=== PATIENT | female | born 1975 | race Hispanic/Latino ===

== ENCOUNTER 2016-12-13 15:46 | Emergency (ER) | payer SELFPAY ==
[2016-12-13 15:56] VITALS: BP 142/80; PULSE 71; RESP 16; TEMP 98; O2SAT 99
--- NOTE | 2016-12-13 16:45 | ED PDOC ---
Lower Extremity Pain/Injury Time Seen by Provider: 12/13/16 15:57 Chief Complaint (Nursing): Lower Extremity Problem/Injury Chief Complaint (Provider): Right heel pain History Per: Patient History/Exam Limitations: no limitations Onset/Duration Of Symptoms: Days (x4 months), Worse Since (x1 day) Current Symptoms Are (Timing): Still Present Additional Complaint(s): Elle Fabian is a 41 year old female who presents to the emergency department complaining of right heel pain for 4 months. Patient states she finds it difficult to walk after waking in the morning but is able to handle the pain better throughout the day. She has been taking Advil with no relief of symptoms. She denies any trauma but she states she is on her feet a lot at work. PMD: None Past Medical History Reviewed: Historical Data, Nursing Documentation, Vital Signs Vital Signs: Last Vital Signs Temp 98.0 F 12/13/16 15:54 Pulse 71 12/13/16 15:54 Resp 16 12/13/16 15:54 BP 142/80 12/13/16 15:54 Pulse Ox 99 12/13/16 15:54 - Medical History PMH: No Chronic Diseases - Surgical History Surgical History: - Family History Family History: States: No Known Family Hx - Living Arrangements Living Arrangements: With Family - Social History Current smoker - smoking cessation education provided: No Alcohol: Social Drugs: Denies - Home Medications Home Medications: Ambulatory Orders Medication Instructions Recorded Naproxen [Naprosyn] 500 mg PO BID #20 tab 12/13/16 traMADol [Ultram] 50 mg PO TID PRN #15 tab 12/13/16 - Allergies Allergies/Adverse Reactions: Allergies Allergy/AdvReac Type Severity Reaction Status Date / Time No Known Allergies Allergy Verified 12/13/14 08:41 Wells Criteria for PE - Wells Criteria for Pulmonary Embolism Clinical Signs and Symptoms of DVT: No P.E is #1 Diagnosis, or Equally Likely: No Heart Rate >100: No Immobilization at least 3 days;Surgery previous 4 weeks: No Previous, objectively diagnosed PE or DVT: No Hemoptysis: No Malignancy w/treatment within 6 months, or palliative: No Total Score: 0 Review of Systems ROS Statement: Except As Marked, All Systems Reviewed And Found Negative Constitutional: Negative for: Fever Musculoskeletal: Positive for: Foot Pain (right heel pain for 4 months, denies trauma or injury) Physical Exam - Reviewed Nursing Documentation Reviewed: Yes Vital Signs Reviewed: Yes - Physical Exam Appears: Positive for: Well, Non-toxic, No Acute Distress Head Exam: Positive for: ATRAUMATIC, NORMAL INSPECTION, NORMOCEPHALIC Skin: Positive for: Normal Color Eye Exam: Positive for: Normal appearance Respiratory: Positive for: Normal Breath Sounds. Negative for: Respiratory Distress Extremity: Positive for: Tenderness (Point tenderness ro right heel, no swelling.). Negative for: Calf Tenderness (right calf no tenderness no swelling ), Swelling - Laboratory Results Urine POC: Negative - ECG O2 Sat by Pulse Oximetry: 99 (RA) Pulse Ox Interpretation: Normal - Other Rad Right foot x-ray X-Ray: Interpreted by Me, Viewed By Me X-Ray Interpretation: no fx, no dis, heel spur Medical Decision Making Medical Decision Making: Initial Impression: 41 y/o female with right heel pain Initial Plan: --Urine --Ultram 50 mg PO --Foot right 3 views [RAD] See procedure note. Patient was given rx naprosyn and tramadol. She was referred to podiatry clinic for follow up. Scribe Attestation: Documented by Jose Rosen, acting as a scribe for Dori GARCIA. Provider Scribe Attestation: All medical record entries made by the Scribe were at my direction and personally dictated by me. I have reviewed the chart and agree that the record accurately reflects my personal performance of the history, physical exam, medical decision making, and the department course for this patient. I have also personally directed, reviewed, and agree with the discharge instructions and disposition. Procedures - Splinting Location: right foot Pre-Made Type: shani wrap and ortho shoe Pre-Proc Neuro Vasc Exam: normal Post-Proc Neuro Vasc Exam: normal Disposition - Clinical Impression Clinical Impression: Heel spur, Plantar fasciitis of right foot - Patient ED Disposition Is Patient to be Admitted: No Counseled Patient/Family Regarding: Studies Performed, Diagnosis, Need For Followup, Rx Given - Disposition Referrals: Podiatry Clinic [Outside] Disposition: Routine/Home Disposition Time: 17:23 Condition: STABLE Additional Instructions: Take rx meds as directed Ice and rest affected area. Follow up with podiatry clinic in 2-3 days. Prescriptions: Naproxen [Naprosyn] 500 mg PO BID #20 tab traMADol [Ultram] 50 mg PO TID PRN #15 tab PRN Reason: Pain, Moderate (4-7) Instructions: Plantar Fasciitis (ED), Heel Spur (ED) Forms: [facility] (Citizen Of [place]), [facility] ED School/Work Excuse Print Language: WELSH
--- NOTE | 2016-12-13 17:29 | RAD ---
PROCEDURE: Right foot dated 12/13/2016 Three standard views right foot performed. HISTORY: trauma COMPARISON: None. FINDINGS: BONES: No evidence of acute displaced fracture nor dislocation. The osseous structures appear intact. . No cortical destructive changes. Small plantar surface calcaneal enthesophyte present. JOINTS: Joint spaces relatively preserved. No significant osteoarthritis SOFT TISSUES: Soft tissues appear grossly unremarkable. No radiopaque foreign bodies. OTHER FINDINGS: None. IMPRESSION: No acute displaced fractures nor dislocations. If symptoms persist or occult fracture suspected clinically recommend repeat radiographs in 5-10 days as most fractures should become radiographically evident in this timeframe. Radiographs.
== END 2016-12-13 17:38 | disposition home or self-care (01) ==
LOC: H.ER 15:46
DX: M77.31 Calcaneal spur, right foot (principal); M72.2 Plantar fascial fibromatosis

== ENCOUNTER 2017-10-17 15:57 | Emergency (ER) | payer SELFPAY ==
[2017-10-17 16:34] VITALS: RESP 18
--- NOTE | 2017-10-17 20:23 | ED PDOC ---
HPI: Abdomen Time Seen by Provider: 10/17/17 17:40 Chief Complaint (Nursing): Abdominal Pain History Per: Patient Additional Complaint(s): 42 yo F c/o L pelvic pain associated with abnormal menses, intermittent vaginal d/c and weight gain. Denies fever, chills, N/V,D, urinary symptoms, being sexually active, h/o STDs, abdominal surgeries. Has no other complaints. Past Medical History Vital Signs: Last Vital Signs Temp 98 F 10/17/17 16:30 Pulse 90 10/17/17 16:30 Resp 18 10/17/17 16:30 BP 123/82 10/17/17 16:30 Pulse Ox 100 10/17/17 20:24 - Surgical History Surgical History: - Family History Family History: States: Unknown Family Hx - Immunization History Hx Tetanus Toxoid Vaccination: No Hx Influenza Vaccination: No Hx Pneumococcal Vaccination: No - Home Medications Home Medications: Ambulatory Orders Medication Instructions Recorded Naproxen [Naprosyn] 500 mg PO BID #20 tab 12/13/16 traMADol [Ultram] 50 mg PO TID PRN #15 tab 12/13/16 - Allergies Allergies/Adverse Reactions: Allergies Allergy/AdvReac Type Severity Reaction Status Date / Time No Known Allergies Allergy Verified 10/17/17 16:30 Review of Systems Constitutional: Negative for: Fever, Malaise Cardiovascular: Negative for: Chest Pain, Palpitations Respiratory: Negative for: Cough, Shortness of Breath Gastrointestinal: Positive for: Abdominal Pain. Negative for: Nausea, Vomiting Genitourinary Female: Positive for: Vaginal Discharge. Negative for: Dysuria, Frequency Skin: Negative for: Rash, Lesions Physical Exam - Physical Exam Appears: Positive for: Well, Non-toxic, No Acute Distress Head Exam: Positive for: ATRAUMATIC, NORMAL INSPECTION, NORMOCEPHALIC Skin: Positive for: Normal Color, Warm, DRY Eye Exam: Positive for: EOMI, Normal appearance, PERRL ENT: Positive for: Normal ENT Inspection Neck: Positive for: Normal, Painless ROM Cardiovascular/Chest: Positive for: Regular Rate, Rhythm Respiratory: Positive for: CNT, Normal Breath Sounds Gastrointestinal/Abdominal: Positive for: Normal Exam, Soft. 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 Negative for: No Cerv. Motion Tender, No Masses, Active Bleeding, Discharge, Lesions Back: Positive for: Normal Inspection Extremity: Positive for: Normal ROM Neurologic/Psych: Positive for: Alert, Oriented - ECG O2 Sat by Pulse Oximetry: 100 Medical Decision Making Medical Decision Making: Plan : - Udip - US pelvic Uhcg (-) Udip (-) Pelvic US results pending. Case endorsed to RADHA Rodriguez at 1999 pending US results, and disposition. Disposition - Clinical Impression Clinical Impression: Pelvic pain - Patient ED Disposition Is Patient to be Admitted: Transfer of Care (Case endorsed to RADHA Rodriguez at 1999 pending US results and disposition) Counseled Patient/Family Regarding: Studies Performed, Diagnosis - Disposition Disposition Time: 20:15 Condition: STABLE Forms: [facility] (Kiswahili)
--- NOTE | 2017-10-17 23:05 | ED PDOC ---
- ECG O2 Sat by Pulse Oximetry: 100 - Progress ED Course And Treament: Case endorsed to medical underwriter from Amadou BINGHAM pending u/s EXAM: US Pelvis Complete, Transabdominal US Duplex Arterial/Venous of the Pelvis, Complete CLINICAL HISTORY: 42 years old, female; Pain; Pelvic pain; Additional info: L pelvic pain TECHNIQUE: Real-time transabdominal pelvic ultrasound (complete) with image documentation. Real-time duplex ultrasound scan of the arterial and venous flow of the pelvis with color Doppler flow and spectral waveform analysis. COMPARISON: No relevant prior studies available. FINDINGS: Uterus/cervix: No myometrial mass. Endometrium: 0.7 cm in thickness. Right ovary: No mass. 1.0 x 1.0 x 1.2 cm follicle. Normal flow. Left ovary: No mass. 1.2 x 1.3 x 1.9 cm follicle. Normal flow. Free fluid: No significant free fluid. IMPRESSION: 1. No acute findings. 2. Non-acute findings are described above. On re-eval, patient states she is feeling better, resting comfortably Patient educated on findings, discharged with instructions to follow up at [facility] ADvised Tylenol/Ibuprofen PRN pain Return precautions given Disposition - Clinical Impression Clinical Impression: Pelvic pain - POA Present On Arrival: None - Disposition Referrals: [facility] [Outside] Disposition: Routine/Home Disposition Time: 23:06 Condition: STABLE Instructions: Chronic Pelvic Pain in Women
[2017-10-18 05:38] VITALS: BP 122/76; PULSE 73; TEMP 98.2; O2SAT 99
--- NOTE | 2017-10-18 14:15 | US ---
Date of service: 10/17/2017 HISTORY: Left pelvic pain. LMP 10/07/2017. Irregular cycles. COMPARISON: None. TECHNIQUE: Transabdominal only. Real-time technique with 2D, duplex and color Doppler FINDINGS: UTERUS: Measures 4.2 x 5.1 x 7.7 cm. Normal in size and appearance. No fibroid or other mass lesion seen. ENDOMETRIUM: Measures 7.4 mm in diameter. No ultrasound findings to suggest gestational sac, fluid, debris, mass or polyp or other pathologic process within the endometrium. CERVIX: No cervical abnormality identified. RIGHT OVARY: Measures 1.6 x 2.2 x 2.4 cm. No solid mass. Normal flow. LEFT OVARY: Measures 1.6 x 2.1 x 2.4 cm. No solid mass. Normal flow. FREE FLUID: No significant free fluid noted. OTHER FINDINGS: None. IMPRESSION: No acute findings related to/accounting for the clinical presentation. Concordant results (preliminary interpretation) provided by [facility]. Procedure Completed: 19:12 Preliminary ([facility]) Report: Dictated and Authenticated: 22:38 Final Interpretation: 14:08
== END 2017-10-17 23:30 | disposition home or self-care (01) ==
LOC: H.ER 15:57
DX: R10.2 Pelvic and perineal pain (principal)

== ENCOUNTER 2018-01-06 15:29 | Emergency (ER) | payer OTHER, SELFPAY ==
[2018-01-06 15:44] VITALS: TEMP 98.6; O2SAT 100
--- NOTE | 2018-01-06 16:18 | ED PDOC ---
HPI: General Adult Time Seen by Provider: 01/06/18 15:55 Chief Complaint (Nursing): Headache Chief Complaint (Provider): Ear and neck pain History Per: Patient History/Exam Limitations: no limitations Onset/Duration Of Symptoms: Days (x 3) Current Symptoms Are (Timing): Still Present Additional Complaint(s): 42 year old female presents to the ED with left ear pain and left upper neck pain for the last 3 days. Patient reports neck pain is worse with movement. Today, she developed left posterior shoulder pain and "sleepiness" in left arm. Patient took 3 Advil and tetracycline [place] got from [place] with minimal relief. Also, yesterday, both of her hands looked blue and resolved after a couple hours on its own. Denies weakness, fever, headache, vision changes and difficulty talking. PMD: Dr. Chuck Kinney NIHSS Stroke Scale - Date/Time Evaluation Performed Date Performed: 01/06/18 - How Severe is the Stroke Level of Consciousness: 0=Alert LOC to Questions: 0=Both comments correct LOC to commands: 0=Obeys both correctly Best Gaze: 0=Normal Visual: 0=No visual loss Facial: 0=Normal Motor Arm - Left: 0=No drift Motor Arm - Right: 0=No drift Motor Leg - Left: 0=No drift Motor Leg - Right: 0=No drift Limb Ataxia: 0=Absent Sensory: 0=Normal Best Language: 0=No aphasia Dysarthia: 0=Normal articulation Extinction & Inattention (Neglect): 0=Normal, no object Score: 0 Past Medical History Reviewed: Historical Data, Nursing Documentation, Vital Signs Vital Signs: Last Vital Signs Temp 98.6 F 01/06/18 15:40 Pulse 57 L 01/06/18 15:40 Resp 18 01/06/18 15:40 BP 146/84 01/06/18 15:40 Pulse Ox 100 01/06/18 15:40 - Medical History PMH: No Chronic Diseases - Surgical History Surgical History: - Family History Family History: States: Unknown Family Hx - Immunization History Hx Tetanus Toxoid Vaccination: No Hx Influenza Vaccination: No Hx Pneumococcal Vaccination: No - Home Medications Home Medications: Ambulatory Orders Medication Instructions Recorded Naproxen [Naprosyn] 500 mg PO BID #20 tab 12/13/16 traMADol [Ultram] 50 mg PO TID PRN #15 tab 12/13/16 Cyclobenzaprine [Cyclobenzaprine 10 mg PO TID PRN #15 tab 01/06/18 HCl] Naproxen [Naprosyn] 500 mg PO BID PRN #15 tablet 01/06/18 - Allergies Allergies/Adverse Reactions: Allergies Allergy/AdvReac Type Severity Reaction Status Date / Time No Known Allergies Allergy Verified 10/17/17 16:30 Review of Systems ROS Statement: Except As Marked, All Systems Reviewed And Found Negative Constitutional: Negative for: Fever, Chills, Weakness Eyes: Negative for: Vision Change Musculoskeletal: Positive for: Neck Pain (left upper), Shoulder Pain (left posterior ), Arm Pain (left arm "sleepiness") Physical Exam - Reviewed Nursing Documentation Reviewed: Yes Vital Signs Reviewed: Yes - Physical Exam Appears: Positive for: Non-toxic, No Acute Distress Head Exam: Positive for: ATRAUMATIC, NORMAL INSPECTION, NORMOCEPHALIC Skin: Positive for: Normal Color, Warm, Dry Eye Exam: Positive for: EOMI, Normal appearance, PERRL Neck: Positive for: Painless ROM (tenderness to left upper lateral neck ), Supple. Negative for: Normal, Limited ROM (no c-spine tenderness) Cardiovascular/Chest: Positive for: Regular Rate, Rhythm. Negative for: Murmur Respiratory: Positive for: Normal Breath Sounds. Negative for: Respiratory Distress Gastrointestinal/Abdominal: Positive for: Normal Exam, Soft. Negative for: Tenderness Extremity: Positive for: Normal ROM. Negative for: Deformity Neurologic/Psych: Positive for: Alert, router machine operator II-XII (intact), Oriented (x 3), Gait (steady). Negative for: Motor/Sensory Deficits - Laboratory Results Result Diagrams: 01/06/18 16:18 01/06/18 16:18 - ECG Interpretation Of ECG: Sinus too @ 55, no ST-T changes. O2 Sat by Pulse Oximetry: 100 (RA ) Pulse Ox Interpretation: Normal Medical Decision Making Medical Decision Makin:06 Impression: neck, shoulder and arm pain Initial Plan: --CT C-Spine --CMP --urine preg --urine dip --CBC 17:10 CT Findings: VERTEBRAE: No fracture. Normal alignment. No destructive bony lesion. DISCS/SPINAL CANAL/NEURAL FORAMINA: No significant central canal or neural foraminal stenosis. Discs heights are grossly preserved. PARASPINAL SOFT TISSUES: Unremarkable. OTHER FINDINGS: Nonspecific 1.0 x 0.7 cm heterogeneous fat containing structure in the right submandibular gland (series 3, image 34). IMPRESSION: Unremarkable CT of the cervical spine. Nonspecific 1.0 cm heterogeneous fat containing structure in the right submandibular gland. Scribe Attestation: Documented by Nadja Reyes, acting as a scribe for Wilma Farris MD Provider Scribe Attestation: All medical record entries made by the Scribe were at my direction and personally dictated by me. I have reviewed the chart and agree that the record accurately reflects my personal performance of the history, physical exam, medical decision making, and the department course for this patient. I have also personally directed, reviewed, and agree with the discharge instructions and disposition. Disposition - Clinical Impression Clinical Impression: Peripheral neuropathy, Neck pain on left side - Disposition Referrals: [facility] [Outside] Leida Walters MD [Medical Doctor] - Disposition: Routine/Home Disposition Time: 20:05 Condition: STABLE Prescriptions: Cyclobenzaprine [Cyclobenzaprine HCl] 10 mg PO TID PRN #15 tab PRN Reason: Pain Naproxen [Naprosyn] 500 mg PO BID PRN #15 tablet PRN Reason: Pain, Moderate (4-7) Instructions: Peripheral Neuropathy, Neck Pain Forms: [facility] (Jamaican) Print Language: INDONESIAN
[2018-01-06 16:23] LABS: BASO % 0.5 % (0.0-2.0); EOS % 0.2 % (0.0-4.0); HEMOGLOBIN 13.1 g/dL (12.0-16.0); LYMPH # 2.3 K/uL (1.0-4.3); LYMPH % 42.2 % (20.0-40.0); MEAN CELL VOLUME 93.8 fl (81.0-99.0); MEAN CORPUSCULAR HEMOGLOBIN 31.6 pg (27.0-31.0); MEAN CORPUSCULAR HGB CONC 33.7 g/dL (33.0-37.0); MONO # 0.5 K/uL (0.0-0.8); MONO % 8.1 % (0.0-10.0); NEUT # 2.7 K/uL (1.8-7.0); RBC 4.15 Mil/uL (3.80-5.20); RED CELL DISTRIBUTION WIDTH 13.7 % (11.5-14.5); WHITE BLOOD COUNT 5.6 K/uL (4.8-10.8)
[2018-01-06 16:33] LABS: ALB/GLOB RATIO 1.1 (1.0-2.1); ALBUMIN 4.1 g/dL (3.5-5.0); ALT/SGPT 32 U/L (9-52); AST/SGOT 26 U/L (14-36); BLOOD UREA NITROGEN 11 mg/dl (7-17); CALCIUM 8.8 mg/dL (8.4-10.2); GFR NON-AFRICAN AMERICAN > 60
--- NOTE | 2018-01-06 17:13 | CT ---
Date of service: 01/06/2018 PROCEDURE: CT Cervical Spine without contrast HISTORY: L neck pain, LUE numbness COMPARISON: None available. TECHNIQUE: Axial computed tomography images were obtained of the cervical spine without the use of intravenous contrast. Coronal and sagittal reformatted images were created and reviewed. Radiation dose: Total exam DLP = 315.7 mGy-cm. This CT exam was performed using one or more of the following dose reduction techniques: Automated exposure control, adjustment of the mA and/or kV according to patient size, and/or use of iterative reconstruction technique. FINDINGS: VERTEBRAE: No fracture. Normal alignment. No destructive bony lesion. DISCS/SPINAL CANAL/NEURAL FORAMINA: No significant central canal or neural foraminal stenosis. Discs heights are grossly preserved. PARASPINAL SOFT TISSUES: Unremarkable. OTHER FINDINGS: Nonspecific 1.0 x 0.7 cm heterogeneous fat containing structure in the right submandibular gland (series 3, image 34). IMPRESSION: Unremarkable CT of the cervical spine. Nonspecific 1.0 cm heterogeneous fat containing structure in the right submandibular gland.
[2018-01-06 19:32] VITALS: BP 126/63; RESP 21
[2018-01-06 20:16] VITALS: PULSE 77
--- NOTE | 2018-01-07 09:18 | CARD ---
APPROVED REPORT Date of service: 01/06/2018 EKG Measurement Heart [id number] <Conclusion> Sinus bradycardia with sinus arrhythmia Otherwise normal ECG
== END 2018-01-06 20:16 | disposition home or self-care (01) ==
LOC: H.ER 15:29
DX: G62.9 Polyneuropathy, unspecified (principal); M54.2 Cervicalgia